=== PATIENT | male | born 1965 | race Caucasian/White ===

== ENCOUNTER 2018-09-03 14:41 | Emergency (ER) | payer MEDICAID, OTHER ==
[2018-09-03 14:49] VITALS: BP 126/79
[2018-09-03] MEDS ORDERED: NS 1,000 ML IV ONE (15:56)
--- NOTE | 2018-09-03 16:00 | EDPHY ---
H & P Stated Complaint: GI problems~3wks;?due to antibx to tx sinus inf;[facility] ?[facility] Time Seen by Provider: 09/03/18 15:57 HPI/ROS: HPI CHIEF COMPLAINT: Right-sided sinus disease. Diarrhea. HISTORY OF PRESENT ILLNESS: 53-year-old male, otherwise healthy presents emergency room stating that he has had some increasing right-sided sinus pain. Patient states in early July he had a dental procedure wrist surgery done to the right-sided upper jaw line with a bone graft. He states this was somewhat complicated by a perforation of his right maxillary sinus. He was placed on amoxicillin antibiotics for that. This caused him to get diarrhea. He has had waxing waning diarrhea with abdominal bloating and gas over the past 2 weeks. He still is having diarrhea however reports that he did have a solid bowel movement today. Denies bloody stool. Denies significant abdominal pain, denies fever. He additionally reports that he still has ongoing right-sided maxillary sinus pressure. No headache. No fever. No neck pain. The patient went to urgent care today was referred to the emergency room for further evaluation of his diarrhea given that he was on antibiotics, additionally was also referred for sinus evaluation. The patient is currently not on any antibiotics. Currently denies any abdominal pain. Past Medical History: No medical history Past Surgical History: Right upper jaw line surgery Social History: Denies drugs alcohol tobacco. Family History: Noncontributory ROS REVIEW OF SYSTEMS: 10 Systems were reviewed and negative with the exception of the elements mentioned in the history of present illness. Exam Constitutional appears well nontoxic triage nursing summary reviewed, vital signs reviewed, awake/alert. Vital signs stable. Eyes normal conjunctivae and sclera, EOMI, PERRLA. HENT TMs clear bilaterally, mild tender palpation over the right maxillary sinus , normal inspection, atraumatic, moist mucus membranes, no epistaxis, neck supple/ no meningismus, no raccoon eyes. Respiratory clear to auscultation bilaterally, normal breath sounds, no respiratory distress, no wheezing. Cardiovascular rate normal, regular rhythm, no murmur, no edema, distal pulses normal. Gastrointestinal nontender abdomen, soft, non-tender, no rebound, no guarding , normal bowel sounds, no distension, no pulsatile mass. Genitourinary no CVA tenderness. Musculoskeletal no midline vertebral tenderness, full range of motion, no calf swelling, no tenderness of extremities, no meningismus, good pulses, neurovascularly intact. Skin pink, warm, & dry, no rash, skin atraumatic. Neurologic awake, alert and oriented x 3, AAOx3, moves all 4 extremities equally, motor intact, sensory intact, CN II-XII intact, normal cerebellar, normal vision, normal speech. Psychiatric normal mood/affect. Heme/Lymph/Immune no lymphadenopathy. Differential Diagnosis: Includes but is not limited to in a particular order acute sinusitis, acute on chronic sinusitis, C diff, antibiotic associated diarrhea, dehydration, electrolyte disturbance Medical Decision Making: Plan for this patient IV establishment with IV fluid bolus, blood draw, stool studies, Re-evaluation: Stool studies resulted Giardia. Stool study positive for Giardia. Spoke with Dr. Weston with Infectious Disease recommends Tinidazole 2G po x 1. I spoke with ENT Dr. Chalres he recommends Augmentin 875 mg times 14 days. Twice daily. Additionally recommends Decadron 8 mg for 2 days in a row. Additionally the patient has GERD on stool studies I have ordered Tinidazole one time dose in er. I discussed with this patient that he needs to take Augmentin for the next 2 weeks. He has a follow-up with Dr. Charles. Additionally consulted with id about Giardia treatment. Recommends Tinidazole 2G PO x 1 dose in Er. This is been ordered. Patient understands return emergency develops worsening abdominal pain, fever, vomiting bloody stools, not feeling well. Antibiotics with food. Source: Patient - Personal History Current Tetanus Diphtheria and Acellular Pertussis (TDAP): Yes - Medical/Surgical History Other PMH: healthy - Social History Smoking Status: Never smoked Constitutional: Initial Vital Signs Temperature (C) 36.7 C 09/03/18 14:45 Heart Rate 82 09/03/18 14:45 Respiratory Rate 18 09/03/18 14:45 Blood Pressure 126/79 H 09/03/18 14:45 O2 Sat (%) 98 09/03/18 14:45 O2 Delivery Mode Room Air Allergies/Adverse Reactions: No Known Allergies Allergy (Unverified 09/03/18 14:48) Home Medications: Medication Instructions Recorded Amoxicillin/Clavulanate Pot 875 mg PO BID #28 tab 09/03/18 [Augmentin 875 MG TAB (*)] Dexamethasone [Decadron 4 MG (*)] 8 mg PO DAILY #4 tab 09/03/18 Medical Decision Making - Diagnostics Imaging Results: Imaging Impressions Face CT 09/03/18 15:56 Impression: Findings compatible with right maxillary sinusitis with cortical breakthrough inferiorly adjacent to hyperdense material compatible with patient's reported history of dental procedure transgressing the maxillary sinus requiring bone graft material. Underlying osteomyelitis cannot be radiographically excluded. If this is a clinical concern, further evaluation with MRI is recommended. Cleve Taylor was notified of these findings by telephone at 4:35 PM on 2017. - Data Points Laboratory Results: Laboratory Results 09/03/18 16:24 09/03/18 16:24 09/03/18 09/03/18 16:24 16:24 WBC 8.03 10^3/uL 10^3/uL (3.80-9.50) RBC 5.04 10^6/uL 10^6/uL (4.40-6.38) Hgb 15.5 g/dL g/dL (13.7-17.5) Hct 45.9 % % (40.0-51.0) MCV 91.1 fL fL (81.5-99.8) MCH 30.8 pg pg (27.9-34.1) MCHC 33.8 g/dL g/dL (32.4-36.7) RDW 12.5 % % (11.5-15.2) Plt Count 228 10^3/uL 10^3/uL (150-400) MPV 9.6 fL fL (8.7-11.7) Neut % (Auto) 67.7 % % (39.3-74.2) Lymph % (Auto) 21.8 % % (15.0-45.0) [place] % (Auto) 9.2 % % (4.5-13.0) Eos % (Auto) 0.5 % L % (0.6-7.6) Baso % (Auto) 0.4 % % (0.3-1.7) Nucleat RBC Rel Count 0.0 % % (0.0-0.2) Absolute Neuts (auto) 5.44 10^3/uL 10^3/uL (1.70-6.50) Absolute Lymphs (auto) 1.75 10^3/uL 10^3/uL (1.00-3.00) Absolute Monos (auto) 0.74 10^3/uL 10^3/uL (0.30-0.80) Absolute Eos (auto) 0.04 10^3/uL 10^3/uL (0.03-0.40) Absolute Basos (auto) 0.03 10^3/uL 10^3/uL (0.02-0.10) Absolute Nucleated RBC 0.00 10^3/uL 10^3/uL (0-0.01) Immature Gran % 0.4 % % (0.0-1.1) Immature Gran # 0.03 10^3/uL 10^3/uL (0.00-0.10) Sodium 133 mEq/L L mEq/L (135-145) Potassium 4.0 mEq/L mEq/L (3.5-5.2) Chloride 102 mEq/L mEq/L (97-110) Carbon Dioxide 25 mEq/l mEq/l (22-31) Anion Gap 6 mEq/L mEq/L (6-14) BUN 12 mg/dL mg/dL (7-23) Creatinine 0.9 mg/dL mg/dL (0.7-1.3) Estimated GFR > 60 Glucose 83 mg/dL mg/dL (70-100) Calcium 8.6 mg/dL mg/dL (8.5-10.4) Total Bilirubin 0.5 mg/dL mg/dL (0.1-1.4) Conjugated Bilirubin 0.2 mg/dL mg/dL (0.0-0.5) Unconjugated Bilirubin 0.3 mg/dL mg/dL (0.0-1.1) AST 37 IU/L IU/L (17-59) ALT 46 IU/L IU/L (21-72) Alkaline Phosphatase 111 IU/L IU/L (38-126) Total Protein 7.0 g/dL g/dL (6.3-8.2) Albumin 3.9 g/dL g/dL (3.5-5.0) Lipase 73 IU/L IU/L (23-300) Microbiology Results: MICROBIOLOGY 09/03/18 16:17 Stool Gastrointestinal Tract Panel (PCR) - Final Giardia Lamblia Medications Given: Discontinued Medications Sodium Chloride (Ns) 1,000 mls @ 0 mls/hr IV EDNOW ONE; Wide Open PRN Reason: Protocol Stop: 09/03/18 15:57 Last Admin: 09/03/18 16:26 Dose: 1,000 mls Departure - Departure Disposition: Home, Routine, Self-Care Clinical Impression: Sinusitis, Diarrhea Condition: Good Instructions: Sinusitis (ED), Acute Diarrhea (ED) Additional Instructions: 1. Follow up with ENT. Call for follow-up appointment. 2. Return to the emergency room if worsening symptoms 3. Return emergency room if develops worsening abdominal pain, fever, vomiting. 4. You have Giardia. 5. You need to take her antibiotics for her sinus infection as prescribed. 6. Antibiotics with food not on an empty stomach. Referrals: NONE *PRIMARY CARE P,. [Primary Care Provider] - As per Instructions Don Charles MD [Medical Doctor] - As per Instructions Prescriptions: Amoxicillin/Clavulanate Pot [Augmentin 875 MG TAB (*)] 875 mg PO BID #28 tab Dexamethasone [Decadron 4 MG (*)] 8 mg PO DAILY #4 tab
[2018-09-03 16:41] LABS: PLATELET COUNT 228 10^3/uL (150-400)
[2018-09-03] MEDS ORDERED: TINIDAZOLE 500 MG TAB PO SCH (19:15)
[2018-09-03] MEDS ORDERED: AMOXICILLIN/CLAVULANATE POT 875/125 MG TAB PO ONE (19:22)
[2018-09-03] MEDS ORDERED: TINIDAZOLE 500 MG TAB PO ONE (20:00)
== END 2018-09-03 20:21 | disposition home or self-care (01) ==
DX: J32.0 Chronic maxillary sinusitis (principal); R19.7 Diarrhea, unspecified